=== PATIENT | male | born 1960 | race Caucasian/White ===

== ENCOUNTER → 2016-11-30 | Outpatient (CLI) | payer BC ==
[~2016-11-30] MED LIST: ASPI-515 PO; CLOP75TA PO; EZET10TA3 PO; LANS30CA PO; LEVO75TA5 PO; LOVA40TA2 PO; METO50TA82 PO
== END | disposition home or self-care (01) ==
LOC: CVU 15:59
PROVIDERS: ATTEND Internal Medicine Cardiovascular Disease
DX: I35.1 Nonrheumatic aortic (valve) insufficiency (principal)
CPT/HCPCS: 93306

== ENCOUNTER 2019-03-20 13:27 | Outpatient (CLI) | payer BC | END 2019-03-20 23:59 | disposition home or self-care (01) | LOC: CVU 13:27 | PROVIDERS: ATTEND Physician Assistant Medical | DX: I08.3 Combined rheumatic disorders of mitral, aortic and tricuspid valves (principal); I10 Essential (primary) hypertension; I25.10 Atherosclerotic heart disease of native coronary artery without angina pectoris; Z95.0 Presence of cardiac pacemaker; Z85.71 Personal history of Hodgkin lymphoma; Z92.3 Personal history of irradiation | CPT/HCPCS: 93306; J2785 ==

== ENCOUNTER 2019-03-21 08:04 | Outpatient (CLI) | payer BC | END 2019-03-21 23:59 | disposition home or self-care (01) | LOC: CFH 08:04 | PROVIDERS: ATTEND Physician Assistant Medical | DX: I35.1 Nonrheumatic aortic (valve) insufficiency (principal); R06.00 Dyspnea, unspecified; I10 Essential (primary) hypertension | CPT/HCPCS: 78452; 93017; A9502 ==

== ENCOUNTER 2019-03-23 10:51 | Outpatient (CLI) | payer BC | END 2019-03-23 23:59 | disposition home or self-care (01) | LOC: CFH 10:51 | PROVIDERS: ATTEND Internal Medicine Cardiovascular Disease | DX: J90 Pleural effusion, not elsewhere classified (principal); J98.11 Atelectasis; I51.7 Cardiomegaly; I25.10 Atherosclerotic heart disease of native coronary artery without angina pectoris; E04.8 Other specified nontoxic goiter; M85.88 Other specified disorders of bone density and structure, other site | CPT/HCPCS: 71275; Q9967 ==